=== PATIENT | female | born 1940 | race Two or more races ===

== ENCOUNTER 2022-10-11 10:31 | Outpatient (CLI) | payer MEDICAID, SELFPAY ==
--- NOTE | ~2022-10-11 | XR_ITS ---
Clinical Indication: Cough PA and lateral views of the chest: Comparison: None Findings: The lungs are clear, without evidence of focal consolidation or pleural effusion. Cardiome diastinal silhouette is within normal limits. Degenerative change of both shoulders noted. Impression: Clear lungs. Reviewed, dictated and finalized at location . Impression: Clear lungs.
== END 2022-10-11 10:32 | disposition home or self-care (01) ==
DX: R05.9 Cough, unspecified (principal)
CPT/HCPCS: 71046